=== PATIENT | male | born 1985 | race Hispanic/Latino ===

== ENCOUNTER 2016-10-06 08:43 | Emergency (ER) | payer SELFPAY ==
[2016-10-06 08:50] VITALS: O2SAT 98
--- NOTE | 2016-10-06 09:12 | ED PDOC ---
HPI: Psych/Substance Abuse Time Seen by Provider: 10/06/16 08:51 Chief Complaint (Nursing): Alcohol Ingestion Chief Complaint (Provider): Alcohol Ingestion History Per: Patient, EMS History/Exam Limitations: intoxication Onset/Duration Of Symptoms: Unknown Current Symptoms Are (Timing): Still Present Suicide/Self Injury Attempted (Context): None Modifying Factor(s): Alcohol Additional Complaint(s): Patient is a 31 year old male brought to ED by EMS for intoxication. Patient reports he was very intoxicated last night, drank 15 cocktails. This morning was outside, noted to have unsteady gait and police forced him to ED for evaluation. Patient denies any medical complaints at this time. Past Medical History Reviewed: Historical Data, Nursing Documentation, Vital Signs Vital Signs: Last Vital Signs Temp 97 F L 10/06/16 08:46 Pulse 133 H 10/06/16 08:46 Resp 20 10/06/16 08:46 BP 145/130 H 10/06/16 08:46 Pulse Ox 98 10/06/16 08:46 - Medical History PMH: No Chronic Diseases - Surgical History Surgical History: No Surg Hx - Family History Family History: States: No Known Family Hx - Living Arrangements Living Arrangements: Alone - Social History Current smoker - smoking cessation education provided: No Alcohol: Social Drugs: Denies - Allergies Allergies/Adverse Reactions: Allergies Allergy/AdvReac Type Severity Reaction Status Date / Time No Known Allergies Allergy Verified 10/06/16 08:46 Review of Systems ROS Statement: Except As Marked, All Systems Reviewed And Found Negative Constitutional: Negative for: Weakness Eyes: Negative for: Vision Change Cardiovascular: Negative for: Chest Pain Respiratory: Negative for: Shortness of Breath Gastrointestinal: Negative for: Nausea, Vomiting Musculoskeletal: Negative for: Neck Pain Skin: Negative for: Rash Neurological: Negative for: Weakness, Numbness Psych: Negative for: Depression, Suicidal ideation Physical Exam - Reviewed Nursing Documentation Reviewed: Yes Vital Signs Reviewed: Yes - Physical Exam Appears: Positive for: Non-toxic, No Acute Distress Head Exam: Positive for: ATRAUMATIC, NORMAL INSPECTION Skin: Positive for: Normal Color, Warm Eye Exam: Positive for: Normal appearance, EOMI, PERRL Neck: Positive for: Normal, Painless ROM Cardiovascular/Chest: Positive for: Regular Rate, Rhythm, Tachycardia Respiratory: Positive for: Normal Breath Sounds. Negative for: Respiratory Distress Gastrointestinal/Abdominal: Positive for: Normal Exam. Negative for: Tenderness , Distended Extremity: Positive for: Normal ROM Neurologic/Psych: Positive for: Alert, Oriented, Other (slight slurred speech ) . Negative for: Motor/Sensory Deficits - ECG O2 Sat by Pulse Oximetry: 98 (RA) Pulse Ox Interpretation: Normal Medical Decision Making Medical Decision Making: Time: 0900 Initial impression: Alcohol intoxication Initial plan: -- Alcohol serum Patient is alert and awake and stable for discharge. Patient is ambulatory with steady gait. Patient will be discharged under supervision of his friend who will take responsibility. Scribe Attestation: Documented by Anita Taylor acting as a scribe for Rosalino Martinez MD MD Scribe Attestation: All medical record entries made by the Scribe were at my direction and personally dictated by me. I have reviewed the chart and agree that the record accurately reflects my personal performance of the history, physical exam, medical decision making, and the department course for this patient. I have also personally directed, reviewed, and agree with the discharge instructions and disposition. Disposition - Clinical Impression Clinical Impression: Alcohol abuse with intoxication - Patient ED Disposition Is Patient to be Admitted: No Doctor Will See Patient In The: Office Counseled Patient/Family Regarding: Studies Performed, Diagnosis, Need For Followup - Disposition Referrals: [facility] [Outside] Disposition: Routine/Home Disposition Time: 10:28 Condition: GOOD Additional Instructions: Return for worsening. Follow up with your PCP in 2-3 days. Instructions: Alcohol Intoxication (ED)
[2016-10-06 10:49] VITALS: BP 138/88; PULSE 97; RESP 16; TEMP 98.1
== END 2016-10-06 10:39 | disposition home or self-care (01) ==
LOC: H.ER 08:43
DX: F10.129 Alcohol abuse with intoxication, unspecified (principal)
CPT/HCPCS: 99282; G0480